=== PATIENT | female | born 1940 | race Caucasian/White ===

== ENCOUNTER 2020-02-01 11:55 | Emergency (ER) | payer MEDICARE ==
[~2020-02-01] VITALS: Ht 152.4 cm; Wt 57.6 kg
--- NOTE | 2020-02-01 12:03 | NUR ---
PT BIBRA FROM [facility], PER EMS PT HAD A WITNESSED SYNCOPAL EPISODE. 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 STABLE VITALS. AWAITING MD GARZA.
--- NOTE | 2020-02-01 12:05 | NUR ---
DR SHAW AT BEDSIDE FOR EVAL.
[2020-02-01] MEDS: IV NS 0.9% 500 ML BAG IV ONE (12:19)
[2020-02-01] MEDS ORDERED: ATOR40TA PO (12:23)
[2020-02-01] MEDS ORDERED: ONDA8TAB6 PO (12:23)
[2020-02-01] MEDS ORDERED: CITA40TA11 PO (12:23)
[2020-02-01] MEDS ORDERED: ENAL10TA PO (12:23)
[2020-02-01] MEDS ORDERED: DIAZ2TAB3 PO (12:23)
[2020-02-01] MEDS ORDERED: FENO160T PO (12:23)
[2020-02-01] MEDS ORDERED: METO-357 PO (12:23)
[2020-02-01] MEDS ORDERED: CHOL100040 PO (12:23)
[2020-02-01] MEDS ORDERED: MEMA1CAP5 PO (12:23)
[2020-02-01 12:33] LABS: BASOPHILS % (AUTO) 0.3 % (0.0-2.0); EOSINOPHILS % (AUTO) 0.4 % (0.0-6.0); HEMATOCRIT 43 % (33-45); HEMOGLOBIN 13.8 g/dL (11.5-14.8); LYMPHOCYTES % (AUTO) 6.7 % (20.0-44.0); MEAN CORPUSCULAR HGB CONC 32 g/dl (31.0-36.0); MEAN CORPUSCULAR VOLUME 91 fL (82-100); MONOCYTES # (AUTO) 1.1 /CMM (0.1-1.30); MONOCYTES % (AUTO) 7.5 % (2.0-12.0); NEUTROPHILS % (AUTO) 85.1 % (43.0-81.0); PLATELET COUNT (AUTO) 235 /CMM (150-450); RED BLOOD CELL COUNT(AUTO) 4.68 MIL/uL (4.0-5.2); WHITE BLOOD COUNT (AUTO) 14.2 K/uL (4.3-11.0)
--- NOTE | 2020-02-01 12:34 | NUR ---
RADIOLOGY AT BEDSIDE FOR CHEST XRAY.
[2020-02-01 12:42] LABS: CALCIUM, SERUM 9.2 mg/dL (8.5-10.1); CARBON DIOXIDE 25 mmol/L (21-32); CHLORIDE 106 mmol/L (98-107); CREATININE 0.8 mg/dL (0.6-1.3); GLUCOSE 134 mg/dL (74-106); POTASSIUM 3.8 mmol/L (3.5-5.1); SODIUM SERUM 143 mmol/L (136-145); UREA NITROGEN, BLOOD 10 mg/dL (7-18)
[2020-02-01 12:48] LABS: ALANINE AMINOTRANSFERASE 22 U/L (12-78); ALBUMIN 3.1 g/dL (3.4-5.0); ALKALINE PHOSPHATASE 135 U/L (46-116); ASPARTATE AMINOTRANSFERASE 31 U/L (15-37); BILIRUBIN,DIRECT 0.3 mg/dL (0.0-0.2); BILIRUBIN,TOTAL 1.1 mg/dL (0.2-1.0); TOTAL PROTEIN, SERUM 6.7 g/dL (6.4-8.2)
[2020-02-01 13:12] LABS: APPEARANCE,URINE SLIGHTLY CLOUDY (CLEAR); BILIRUBIN,URINE SMALL (NEGATIVE); BLOOD, URINE Trace-intact Ery/uL (NEGATIVE); COLOR,URINE Yellow (YELLOW); KETONES,URINE Trace (NEGATIVE); LEUKOCYTE ESTERASE ,URINE Small (NEGATIVE); NITRITE, URINE Positive (NEGATIVE); PH,URINE 5.5 (5.0-8.0); PROTEIN,URINE 30 mg/dl (NEGATIVE); UGLUCOSE Negative (NEGATIVE); UROBILINOGEN,URINE 0.2 EU/dL (0.2)
[2020-02-01 13:28] LABS: BACTERIA,URINE Many /HPF (None Seen); SQUAMOUS EPITHELIAL CELL,UR Few /HPF (None Seen)
[2020-02-01] MEDS ORDERED: CEFTRIAXONE 1GM BAG (ER ONLY) 50 ML IV ONE (13:28)
[2020-02-01] MEDS: CEFTRIAXONE 1 G in IV D5W 50 ML IV ONE (13:34)
--- NOTE | 2020-02-01 13:50 | NUR ---
CALLED [facility]. SPOKE WITH FILIPPO DOUGLASS. WAITING FOR THEM TO CALL ME BACK WITH AMBULANCE ETA. PT INFORMATION WAS GIVEN.
--- NOTE | 2020-02-01 14:23 | NUR ---
MED [facility] [phone] ETA.
--- NOTE | 2020-02-01 15:29 | NUR ---
TRANSPORTED BACK TO [facility]. STABLE CONDITION.
[2020-02-01 15:30] VITALS: BP 145/74
== END 2020-02-01 15:31 | disposition home or self-care (01) ==
LOC: ER 12:00
DX: R55 Syncope and collapse (principal); R00.1 Bradycardia, unspecified; N39.0 Urinary tract infection, site not specified; I10 Essential (primary) hypertension; F03.90 Unspecified dementia, unspecified severity, without behavioral disturbance, psychotic disturbance, mood disturbance, and anxiety; Z79.899 Other long term (current) drug therapy
CPT/HCPCS: 36415; 71045; 80048; 80076; 81001; 82962; 84484; 85025; 85730; 93005; 96365; 99285; J0696 ×2; J7040; J7060; 81000-TC

== ENCOUNTER 2020-05-22 09:21 | Emergency (ER) | payer MEDICARE ==
[~2020-05-22] VITALS: Ht 162.6 cm; Wt 54.0 kg
[~2020-05-22 09:21] MED LIST: ATOR40TA PO; CHOL100040 PO; CITA40TA11 PO; DIAZ2TAB3 PO; ENAL10TA PO; FENO160T PO; MEMA1CAP5 PO; METO-357 PO; ONDA8TAB6 PO
--- NOTE | 2020-05-22 09:21 | NUR ---
PT PETERSON FROM [facility] C/O SYNCOPAL EPISODE. 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 WILL CONTINUE TO MONITOR.
--- NOTE | 2020-05-22 09:40 | NUR ---
IV LINE ESTABLISHED. G 18 R HAND
--- NOTE | 2020-05-22 09:42 | NUR ---
PT SEEN AND EXAMINED BY .
[2020-05-22] MEDS: IV NS 0.9% 500 ML BAG IV ONE (09:46)
[2020-05-22] MEDS ORDERED: METO50TA16 PO (09:57)
[2020-05-22] MEDS ORDERED: LACT-58 PO (09:57)
--- NOTE | 2020-05-22 10:00 | NUR ---
PT IS WHEELED TO CT SCAN VIA [facility].
--- NOTE | 2020-05-22 10:18 | NUR ---
URINE SPECIMEN COLLECTED AND SENT TO LAB.
[2020-05-22 10:27] LABS: APPEARANCE,URINE Clear (CLEAR); BILIRUBIN,URINE SMALL (NEGATIVE); BLOOD, URINE Trace-intact Ery/uL (NEGATIVE); COLOR,URINE Yellow (YELLOW); KETONES,URINE Trace (NEGATIVE); LEUKOCYTE ESTERASE ,URINE Small (NEGATIVE); NITRITE, URINE Positive (NEGATIVE); PROTEIN,URINE Trace mg/dl (NEGATIVE); UGLUCOSE Negative (NEGATIVE)
[2020-05-22 10:34] LABS: BACTERIA,URINE 1+ /HPF (None Seen)
[2020-05-22 10:35] LABS: SQUAMOUS EPITHELIAL CELL,UR Few /HPF (None Seen)
[2020-05-22 10:50] LABS: BASOPHILS % (AUTO) 0.3 % (0.0-2.0); EOSINOPHILS % (AUTO) 0.9 % (0.0-6.0); HEMATOCRIT 47 % (33-45); HEMOGLOBIN 14.4 g/dL (11.5-14.8); LYMPHOCYTES # (AUTO) 1.1 /CMM (0.8-4.8); LYMPHOCYTES % (AUTO) 9.8 % (20.0-44.0); MEAN CORPUSCULAR HGB CONC 30 g/dl (31.0-36.0); MEAN CORPUSCULAR VOLUME 101 fL (82-100); MONOCYTES % (AUTO) 8.8 % (2.0-12.0); NEUTROPHILS # (AUTO) 9.2 /CMM (1.8-8.9); NEUTROPHILS % (AUTO) 80.2 % (43.0-81.0); PLATELET COUNT (AUTO) 150 /CMM (150-450); RED BLOOD CELL COUNT(AUTO) 4.66 MIL/uL (4.0-5.2); WHITE BLOOD COUNT (AUTO) 11.4 K/uL (4.3-11.0)
[2020-05-22 11:06] LABS: CALCIUM, SERUM 8.3 mg/dL (8.5-10.1); CARBON DIOXIDE 21 mmol/L (21-32); CHLORIDE 110 mmol/L (98-107); CREATININE 0.9 mg/dL (0.6-1.3); GLUCOSE 93 mg/dL (74-106); POTASSIUM 3.5 mmol/L (3.5-5.1); SODIUM SERUM 144 mmol/L (136-145); UREA NITROGEN, BLOOD 19 mg/dL (7-18)
[2020-05-22 11:13] LABS: ALANINE AMINOTRANSFERASE 692 U/L (12-78); ALBUMIN 2.9 g/dL (3.4-5.0); ALKALINE PHOSPHATASE 164 U/L (46-116); ASPARTATE AMINOTRANSFERASE 572 U/L (15-37); BILIRUBIN,DIRECT 0.5 mg/dL (0.0-0.2); BILIRUBIN,TOTAL 1.1 mg/dL (0.2-1.0); TOTAL PROTEIN, SERUM 6.6 g/dL (6.4-8.2)
[2020-05-22] MEDS ORDERED: CEFTRIAXONE 1GM BAG (ER ONLY) 50 ML IV ONE (11:22)
[2020-05-22] MEDS: IV NS 0.9% 1,000 ML IV ONE (11:36)
[2020-05-22] MEDS: CEFTRIAXONE 1GM BAG (ER ONLY) 1 GM/50 ML PIGGYBACK IV ONE (11:37)
--- NOTE | 2020-05-22 12:30 | NUR ---
SPOKE TO CM AND GAVE CLINICALS. AWAITING HER CALL BACK FOR A PEER TO PEER
--- NOTE | 2020-05-22 13:49 | NUR ---
ASSESSED PT ON BED AWAKE, AAOX3, NOT IN RESPIRATORY DISTRESS, V/S STABLE. AWAITING [facility] FOR POSSIBLE TRANSFER TO OTHER HOSPITAL.
--- NOTE | 2020-05-22 14:03 | NUR ---
CALLED [facility] SPOKED TO SHANNAN BERGERON FOR PT TRANSFER BACK.
--- NOTE | 2020-05-22 14:18 | NUR ---
[facility] ETA 45 MIN PER LITTLE
--- NOTE | 2020-05-22 14:57 | NUR ---
IV removed. Catheter intact and site benign. Pressure and 4x4 applied to site. No bleeding noted. Patient discharged to [facility] in stable condition. Written and verbal after care instructions given to emt for transfer.
[2020-05-22 14:59] VITALS: BP 146/81
== END 2020-05-22 15:07 ==
LOC: ER 09:24
DX: R55 Syncope and collapse (principal); R00.1 Bradycardia, unspecified; E87.2 Acidosis; E86.0 Dehydration; N39.0 Urinary tract infection, site not specified; F03.90 Unspecified dementia, unspecified severity, without behavioral disturbance, psychotic disturbance, mood disturbance, and anxiety; I10 Essential (primary) hypertension; R11.0 Nausea; Z88.2 Allergy status to sulfonamides; Z79.899 Other long term (current) drug therapy
CPT/HCPCS: 36415; 70450; 71045; 80048; 80076; 81001; 83605 ×2; 84484; 85025; 87040 ×2; 87086; 93005 ×2; 96365; 99285; J0696; J7030; J7040; 81000-TC; 87186-TC

== ENCOUNTER 2021-05-17 11:46 | Emergency (ER) | payer MEDICARE, MEDICAID ==
[~2021-05-17] VITALS: Ht 162.6 cm; Wt 59.9 kg
[~2021-05-17 11:46] MED LIST changes: -ENAL10TA PO; +ENAL10TA39 PO; +LACT-58 PO; -METO-357 PO; +METO50TA16 PO
--- NOTE | 2021-05-17 11:52 | NUR ---
JF 102 FROM [facility] C/O FOREHEAD INJURY AND L ELBOW PAIN S/P UNWITNESSED GLF. THE PATIENT IS ALERT AND ORIENTED X1. THE PATIENT UNABLE TO RATE PAIN. BASED ON THE PAIN SCALE THE PATIENT`S PAIN LEVEL IS 0/10. IN ROOM AIR AND DENIES SOB. RESPIRATION REGULAR AND UNLABORED. WILL CONTINUE TO MONITOR THE PATIENT.
[2021-05-17] MEDS ORDERED: TDAP [DIPH/PERTUSSIS/TET] 0.5 ML VIAL IM ONE ×2 (12:00→12:02)
--- NOTE | 2021-05-17 12:07 | NUR ---
TAKEN TO CT
[2021-05-17] MEDS ORDERED: IBUPROFEN 400 MG TABLET PO ONE (13:00)
[2021-05-17] MEDS ORDERED: IBUPROFEN 400 MG TABLET ONE (13:01)
[2021-05-17] MEDS ORDERED: ibupro (13:49)
[2021-05-17] MEDS ORDERED: IBUP-1955 PO (13:49)
--- NOTE | 2021-05-17 13:57 | NUR ---
SPOKE TO RUBIO, WE[facility]NESS NURSE OF [facility] TO GIVE REPORT RE PT STATUS AND THAT PT IS GETTING DC.
--- NOTE | 2021-05-17 14:07 | NUR ---
CALLED [facility] AT [phone] AND SPOKE WITH LIZETH Ashton TO SET UP TRANSPORT BACK TO FACILITY. ALL COORDINATORS BUSY. COORDINATOR WILL CALL BACK AND ASK FOR DETAILS TO SET UP TRANSPORT.
--- NOTE | 2021-05-17 14:16 | NUR ---
TRAN[facility]ORT [facility] CALLED ETA 30 MINS PER CHARLY
--- NOTE | 2021-05-17 14:30 | NUR ---
TRANSPORT PICKED UP PT, REPORT GIVEN
[2021-05-17 14:37] VITALS: BP 161/86
== END 2021-05-17 14:38 ==
LOC: ER 11:49
DX: S52.122A Displaced fracture of head of left radius, initial encounter for closed fracture (principal); S00.81XA Abrasion of other part of head, initial encounter; J90 Pleural effusion, not elsewhere classified; F03.90 Unspecified dementia, unspecified severity, without behavioral disturbance, psychotic disturbance, mood disturbance, and anxiety; I10 Essential (primary) hypertension; Z88.2 Allergy status to sulfonamides; Z79.899 Other long term (current) drug therapy; W18.39XA Other fall on same level, initial encounter; Y93.89 Activity, other specified; Y92.89 Other specified places as the place of occurrence of the external cause; Y99.8 Other external cause status
CPT/HCPCS: 70450-TC; 71045-TC; 72125-TC; 73080-TC; 90715